=== PATIENT | male | born 1990 | race Caucasian/White ===

== ENCOUNTER 2018-02-17 15:11 | Outpatient (CLI) | payer OTHER ==
[2018-02-18] MEDS ORDERED: HUMALOG100 UNIT/1 (15:01)
== END 2018-02-17 15:18 | disposition home or self-care (01) ==
LOC: RAD 15:11
DX: Z01.812 Encounter for preprocedural laboratory examination (principal)

== ENCOUNTER 2018-02-23 05:30 | Day surgery (SDC) | payer OTHER ==
[~2018-02-23 05:30] MED LIST: HUMALOG100 UNIT/1
== END 2018-02-23 13:20 | disposition home or self-care (01) ==
LOC: CIR.AMB 05:30
DX: D23.21 Other benign neoplasm of skin of right ear and external auricular canal (principal)